=== PATIENT | female | born 1980 | race Caucasian/White ===

== ENCOUNTER 2017-03-25 02:24 | Emergency (ER) | payer BC ==
[~2017-03-25] VITALS: Ht 160 cm; Wt 62.6 kg
[2017-03-25 03:29] LABS: BASOPHIL % 0.6 % (0-2); PLATELET COUNT 207 x10^3mcL (130-400); RED CELL DISTRIBUTION WIDTH 12.8 % (11.5-14.5)
[2017-03-25 03:37] LABS: CALCIUM 8.9 mg/dL (8.5-10.1); CARBON DIOXIDE 24.8 mmol/L (21-32); CHLORIDE SERUM 102 mmol/L (98-107); CREATININE SERUM 0.8 mg/dL (0.6-1.0); GFR1 > 60 mL/min; GLUCOSE SERUM 106 mg/dL (74-106); SODIUM SERUM 138 mmol/L (136-145)
[2017-03-25 03:52] LABS: FREE T4 1.13 ng/dL (0.76-1.46)
[2017-03-25 04:15] VITALS: BP 141/85
== END 2017-03-25 05:00 | disposition home or self-care (01) ==
LOC: ED 02:24
PROVIDERS: Emergency Medicine
DX: F41.9 Anxiety disorder, unspecified (principal)
CPT/HCPCS: 84439; J2060; J7030